=== PATIENT | male | born 1975 | race American Indian/Alaskan Native ===

== ENCOUNTER 2019-03-14 04:56 | Emergency (ER) | payer MEDICAID ==
[~2019-03-14] VITALS: Ht 167.6 cm; Wt 122.5 kg
[2019-03-14 05:06] VITALS: Ht 167.6 cm; Wt 122.5 kg
[2019-03-14 05:49] LABS: BASOPHIL % 0.6 % (0-2); PLATELET COUNT 259 x10^3mcL (130-400)
[2019-03-14 05:50] LABS: RED CELL DISTRIBUTION WIDTH 15.4 % (11.5-14.5)
[2019-03-14 05:58] LABS: CALCIUM 8.8 mg/dL (8.5-10.1); CARBON DIOXIDE 30.4 mmol/L (21-32); CHLORIDE SERUM 105 mmol/L (98-107); GFR1 > 60 mL/min; GLUCOSE SERUM 119 mg/dL (74-106); POTASSIUM SERUM 4.3 mmol/L (3.5-5.1); SODIUM SERUM 144 mmol/L (136-145)
[2019-03-14 06:02] LABS: ALBUMIN 3.6 g/dL (3.4-5.0); ALKALINE PHOSPHATASE 81 U/L (46-116); ALT/SGPT 68 U/L (16-63); AST/SGOT 31 U/L (15-37); BILIRUBIN TOTAL 0.22 mg/dL (0.20-1.00); LIPASE 159 IU/L (73-393); TOTAL PROTEIN, SERUM 6.8 g/dL (6.4-8.2)
[2019-03-14 09:13] VITALS: BP 145/84
== END 2019-03-14 09:14 | disposition home or self-care (01) ==
LOC: ED 04:56
PROVIDERS: Emergency Medicine
DX: R10.84 Generalized abdominal pain (principal); J45.901 Unspecified asthma with (acute) exacerbation; Z98.890 Other specified postprocedural states; Z87.442 Personal history of urinary calculi
CPT/HCPCS: 87804; J2270; J2405; J3010; J3490; J7030; J7613; J7620

== ENCOUNTER 2019-05-16 03:49 | Emergency (ER) | payer MEDICAID ==
[~2019-05-16] VITALS: Ht 188 cm; Wt 79.4 kg
[2019-05-16 04:01] VITALS: Ht 188 cm; Wt 79.4 kg
[2019-05-16 05:35] LABS: BASOPHIL % 0.3 % (0-2); PLATELET COUNT 251 x10^3mcL (130-400); RED CELL DISTRIBUTION WIDTH 14.4 % (11.5-14.5)
[2019-05-16 06:07] LABS: CALCIUM 8.8 mg/dL (8.5-10.1); CARBON DIOXIDE 23.1 mmol/L (21-32); CHLORIDE SERUM 105 mmol/L (98-107); GFR1 > 60 mL/min; GLUCOSE SERUM 101 mg/dL (74-106); POTASSIUM SERUM 4.2 mmol/L (3.5-5.1); SODIUM SERUM 139 mmol/L (136-145)
[2019-05-16 06:11] LABS: ALBUMIN 3.4 g/dL (3.4-5.0); ALKALINE PHOSPHATASE 68 U/L (46-116); ALT/SGPT 65 U/L (16-63); AST/SGOT 44 U/L (15-37); BILIRUBIN TOTAL 0.18 mg/dL (0.20-1.00); LIPASE 211 IU/L (73-393); TOTAL PROTEIN, SERUM 6.9 g/dL (6.4-8.2)
[2019-05-16 06:34] VITALS: BP 140/99
== END 2019-05-16 06:34 | disposition home or self-care (01) ==
LOC: ED 03:49
PROVIDERS: Emergency Medicine
DX: J45.901 Unspecified asthma with (acute) exacerbation (principal); R10.30 Lower abdominal pain, unspecified; F17.210 Nicotine dependence, cigarettes, uncomplicated; Z90.49 Acquired absence of other specified parts of digestive tract; Z98.890 Other specified postprocedural states
CPT/HCPCS: 99406; J1885; J2270; J2405; J7030; J7512; J7613; J7644; Q0092